=== PATIENT | male | born 1985 | race Caucasian/White ===

== ENCOUNTER 2025-05-02 13:02 | Emergency (ER) | payer MEDICAID ==
[~2025-05-02] VITALS: Ht 182.9 cm; Wt 100.0 kg
[2025-05-02 13:19] VITALS: TEMP 36.7; O2SAT 99
[2025-05-02] MEDS ORDERED: OMEP40CA20 MT (13:41)
[2025-05-02] MEDS ORDERED: FAMO40TA7 MT (13:41)
[2025-05-02 13:53] VITALS: BP 158/81; PULSE 69; RESP 17; TEMP 98.06
[2025-05-02] MEDS: FAMOTIDINE 20MG TABLET PO ONE (13:53)
[2025-05-02] MEDS: PANTOPRAZOLE 40MG DR TABLET PO STA (13:53)
[2025-05-02 13:57] LABS: BASOPHILS % 0.7 % (0.0-2.0); EOSINOPHILS % 1.6 % (0.0-5.0); HEMATOCRIT. 39.0 % (42.0-52.0); HEMOGLOBIN. 13.1 g/dL (14.0-18.0); LYMPHOCYTES % 34.4 % (20.0-50.0); MEAN PLATELET VOLUME 7.4 fl (7.4-10.4); MONOCYTES % 9.9 % (2.0-8.0); NEUTROPHILS % 53.4 % (40.0-76.0); PLATELET 307 x1000/uL (130-400); RED BLOOD CELL COUNT 4.29 mill/uL (4.7-6.1); RED CELL DISTRIBUTION WIDTH 14.8 % (11.6-14.6)
[2025-05-02 14:27] LABS: CREATININE 0.8 mg/dL (0.6-1.3); UREA NITROGEN BLOOD 11 mg/dL (9-23)
[2025-05-02 14:29] LABS: ASPARTATE AMINOTRANSFERASE 13 IU/L (<34); BILIRUBIN DIRECT 0.2 mg/dL (<=3.0); BILIRUBIN TOTAL 0.8 mg/dL (0.1-1.0); PROTEIN TOTAL 7.0 g/dL (6.0-8.3)
== END 2025-05-02 14:52 | disposition home or self-care (01) ==
LOC: ER 13:02
DX: K29.70 Gastritis, unspecified, without bleeding (principal); K25.9 Gastric ulcer, unspecified as acute or chronic, without hemorrhage or perforation; Z98.890 Other specified postprocedural states
CPT/HCPCS: 36415; 80048; 80076; 85025; 99283

== ENCOUNTER 2025-06-19 14:04 | Inpatient (IN) | payer MEDICAID ==
[~2025-06-19] VITALS: Ht 182.9 cm; Wt 99.8 kg
[~2025-06-19 14:04] MED LIST: FAMO40TA7 MT; HYDR-459 MT; HYDR25TA78 MT; OMEP20TA23 MT; OMEP40CA20 MT; SERT-422 PO; TRAZ-251 MT
[2025-06-19 14:23] VITALS: O2SAT 99
[2025-06-19 16:05] LABS: BASOPHILS % 0.5 % (0.0-2.0); EOSINOPHILS % 1.3 % (0.0-5.0); HEMATOCRIT. 39.0 % (42.0-52.0); HEMOGLOBIN. 12.8 g/dL (14.0-18.0); LYMPHOCYTES % 35.4 % (20.0-50.0); MEAN PLATELET VOLUME 7.8 fl (7.4-10.4); MONOCYTES % 10.1 % (2.0-8.0); NEUTROPHILS % 52.7 % (40.0-76.0); PLATELET 214 x1000/uL (130-400); RED BLOOD CELL COUNT 4.37 mill/uL (4.7-6.1); RED CELL DISTRIBUTION WIDTH 15.2 % (11.6-14.6)
[2025-06-19 16:21] LABS: CREATININE 0.8 mg/dL (0.6-1.3); UREA NITROGEN BLOOD 7 mg/dL (9-23)
[2025-06-19] MEDS: FLUTICASONE PROPIONATE 50MCG/SPRAY BOTTLE BOTHNSTRLS SCH (17:19)
[2025-06-19] MEDS ORDERED: ONDANSETRON HCL 4MG/2ML INJ IV PRN (22:15)
[2025-06-19] MEDS ORDERED: DOCUSATE SODIUM 100MG CAPSULE PO PRN (22:15)
[2025-06-19] MEDS ORDERED: DEXTROSE 50% WATER 50ML SYRINGE IV PRN (22:15)
[2025-06-19] MEDS ORDERED: GUAIFENESIN 200MG/10ML SUGAR FREE UDC PO PRN (22:15)
[2025-06-19] MEDS ORDERED: ACETAMINOPHEN 325MG TABLET PO PRN (22:15)
[2025-06-19] MEDS ORDERED: CLONIDINE 0.1MG TABLET PO PRN (22:15)
[2025-06-19] MEDS ORDERED: MAGNESIUM/ALUMINUM HYDROXIDE/SIMETHICONE 30ML UDC PO PRN (22:15)
[2025-06-19] MEDS ORDERED: IPRATROPIUM/ALBUTEROL 0.5-3(2.5)MG/3ML NEB HHN PRN (22:15)
[2025-06-19] MEDS: PANTOPRAZOLE SODIUM 40 MG/VIAL IV SCH (23:08)
[2025-06-20 02:11] LABS: PHOSPHORUS 3.7 mg/dL (2.5-4.9)
[2025-06-20 06:07] VITALS: BP 108/56; PULSE 58; RESP 17; TEMP 34.8612
[2025-06-20 07:14] LABS: CREATININE 0.7 mg/dL (0.6-1.3); TRIGLYCERIDE 114 mg/dL (0-150); UREA NITROGEN BLOOD 10 mg/dL (9-23)
[2025-06-20 07:15] LABS: BASOPHILS % 0.5 % (0.0-2.0); EOSINOPHILS % 1.7 % (0.0-5.0); HEMATOCRIT. 38.2 % (42.0-52.0); HEMOGLOBIN. 12.6 g/dL (14.0-18.0); LDL CHOLESTEROL 100 mg/dL (5-100); LYMPHOCYTES % 44.3 % (20.0-50.0); MEAN PLATELET VOLUME 8.0 fl (7.4-10.4); MONOCYTES % 10.9 % (2.0-8.0); NEUTROPHILS % 42.6 % (40.0-76.0); PLATELET 206 x1000/uL (130-400); RED BLOOD CELL COUNT 4.30 mill/uL (4.7-6.1); RED CELL DISTRIBUTION WIDTH 15.2 % (11.6-14.6)
[2025-06-20 07:16] LABS: T4 FREE 1.10 ng/dL (0.89-1.76)
[2025-06-20 08:00] VITALS: BP 133/77; PULSE 69; RESP 16; TEMP 36.3; O2SAT 100
[2025-06-20 16:00] VITALS: BP 138/95; PULSE 58; RESP 16; TEMP 36.3; O2SAT 100
== END 2025-06-20 20:38 | disposition home or self-care (01) | DRG 241 ==
LOC: ER 14:04 → EDBEDREQTM 17:27 → EDBEDREQ 17:27 → ENRESERV 19:47 → 6EST 21:57
PROVIDERS: ADMIT Internal Medicine; ATTEND Internal Medicine
DX: K27.9 Peptic ulcer, site unspecified, unspecified as acute or chronic, without hemorrhage or perforation (principal); D64.9 Anemia, unspecified; K29.71 Gastritis, unspecified, with bleeding; F32.9 Major depressive disorder, single episode, unspecified; F41.9 Anxiety disorder, unspecified
CPT/HCPCS: 36415; 71045; 80048; 80061; 83735; 84100; 84439; 84443; 85025; 99285; A4606; J2470